=== PATIENT | male | born 1955 | race Caucasian/White ===

== ENCOUNTER 2019-07-09 05:55 | Emergency (ER) | payer MEDICAID ==
[~2019-07-09] VITALS: Ht 188 cm; Wt 97.1 kg
[2019-07-09 07:25] LABS: Basophils # (auto) 0.1 10 ^3/uL (0-0.2); Eosinophils # (auto) 0.2 10 ^3/uL (0-0.8); Eosinophils % (auto) 2.9 % (0.0-7.0); Lymphocytes # (auto) 1.1 10 ^3/uL (0.4-5.4); Lymphocytes % (auto) 18.9 % (10.0-50.0); Monocytes # (auto) 0.5 10 ^3/uL (0-1.3); Nucleated Red Blood Cells % 0.1 %
[2019-07-09 07:28] LABS: Hematocrit 43.7 % (41.0-53.0); Mean Corpuscular Hemoglobin 34.4 pg (28.0-32.0); Mean Corpuscular Hgb Conc. 34.3 g/dL (32.0-36.0); Mean Corpuscular Volume 100.3 fL (80.0-100.0); Monocytes % (auto) 8.3 % (0.0-12.0); Neutrophils # (auto) 3.9 10 ^3/uL (1.6-8.6); Neutrophils % (auto) 68.9 % (37.0-80.0); Platelet Count (auto) 236 10^3/uL (140-450); Red Blood Cells 4.36 10^6/uL (4.5-5.90); Red Cell Distribution Width 14.1 % (11.8-14.3); White Blood Cell 5.6 10^3/uL (4.4-10.8)
[2019-07-09 07:39] LABS: Albumin 3.1 g/dL (3.4-5.0); Anion Gap 5 (5-15); Blood Urea Nitrogen 10 mg/dL (7-18); Calcium 8.9 mg/dL (8.5-10.1); Carbon Dioxide 24 mmol/L (21-32); Chloride 110 mmol/L (98-107); Glucose 101 mg/dL (74-106); Magnesium 2.1 mg/dL (1.6-2.6); Potassium 4.1 mmol/L (3.5-5.1); Sodium 139 mmol/L (136-145)
[2019-07-09 07:42] LABS: INR 0.99 (0.9-1.15); Partial Thromboplastin Time 27.7 sec (23.64-32.05)
[2019-07-09 07:42] LABS: Urine Bacteria NONE SEEN /hpf (None Seen); Urine Blood Negative /uL (Negative); Urine Specific Gravity 1.008 (1.001-1.035); Urine WBC <1 /hpf (0 - 3)
[2019-07-09 07:44] LABS: Alanine Aminotransferase 31 U/L (16-61); Alkaline Phosphatase 70 U/L (45-117); Aspartate Aminotransferase 23 U/L (15-37); BUN/Creatinine Ratio 13.2; Bilirubin, Total 0.3 mg/dL (0.2-1.0); GFR African American 134 mL/min; GFR Non-African American 110 mL/min; Total Protein 6.8 g/dL (6.4-8.2)
[2019-07-09 07:53] VITALS: BP 130/83
[2019-07-09] MEDS ORDERED: IOHEXOL 350 MG/ML 100ML IJ ONE (09:36)
== END 2019-07-09 09:39 | disposition left against medical advice (07) ==
LOC: ER 05:55
DX: R07.89 Other chest pain (principal)
CPT/HCPCS: 36415; 71045; 80053; 81001; 83735; 84443; 84484; 85025; 85379; 85610; 85730; 93005

== ENCOUNTER 2023-07-30 11:07 | Emergency (ER) | payer MEDICAID, MEDICARE ==
[~2023-07-30] VITALS: Ht 190.5 cm; Wt 89.2 kg
[2023-07-30 12:12] VITALS: BP 143/84; PULSE 74; RESP 16; TEMP 99.4; O2SAT 96
[2023-07-30] MEDS: ACETAMINOPHEN 500 MG TAB PO ONE (12:42)
[2023-07-30] MEDS ORDERED: IBUP-1456 PO (13:08)
[2023-07-30] MEDS ORDERED: METH-1182 PO (13:08)
== END 2023-07-30 13:17 | disposition home or self-care (01) ==
LOC: ER 11:07
DX: S16.1XXA Strain of muscle, fascia and tendon at neck level, initial encounter (principal); S46.811A Strain of other muscles, fascia and tendons at shoulder and upper arm level, right arm, initial encounter; I48.91 Unspecified atrial fibrillation; F17.210 Nicotine dependence, cigarettes, uncomplicated; F15.90 Other stimulant use, unspecified, uncomplicated; Z88.8 Allergy status to other drugs, medicaments and biological substances; Z79.899 Other long term (current) drug therapy; V49.59XA Passenger injured in collision with other motor vehicles in traffic accident, initial encounter; Y93.89 Activity, other specified; Y92.89 Other specified places as the place of occurrence of the external cause; Y99.8 Other external cause status
CPT/HCPCS: 72040; 73030